=== PATIENT | male | born 1975 ===

== ENCOUNTER 2017-09-21 11:48 | Emergency (ER) | payer MEDICAID, OTHER ==
[2017-09-21] MEDS ORDERED: Albuterol-Ipratrop 3 mg / 0.5 (3 ml) UD INH STA (12:15)
[2017-09-21] MEDS ORDERED: Albuterol-Ipratrop 3 mg / 0.5 (3 ml) UD ONE (12:33)
--- NOTE | 2017-09-21 12:36 | RAD ---
HISTORY: cough COMPARISON: 09/14/2015 TECHNIQUE: Chest PA and lateral FINDINGS: LUNGS: No active pulmonary disease. PLEURA: No significant pleural effusion identified. No pneumothorax apparent. CARDIOVASCULAR: Normal. OSSEOUS STRUCTURES: No significant abnormalities. VISUALIZED UPPER ABDOMEN: Normal. OTHER FINDINGS: None. IMPRESSION: No active disease.
--- NOTE | 2017-09-21 12:55 | C.PDOC ---
History Of Present Illness 42 y/o male presents to the ED complaining of a cough for 3 days. Patient also complains of subjective dyspnea and reports that he has been using a leftover inhaler from a previous treatment for bronchitis, with some improvement. Last used inhaler just prior to arrival. No fever, chills, or other complaints. Time Seen by Provider: 09/21/17 12:07 Chief Complaint (Nursing): Shortness Of Breath History Per: Patient History/Exam Limitations: no limitations Onset/Duration Of Symptoms: Days (x3) Current Symptoms Are (Timing): Still Present Initiating Event: Upper Respiratory Illness Past Medical History Reviewed: Historical Data, Nursing Documentation, Vital Signs Vital Signs: Last Vital Signs Temp 98.1 F 09/21/17 14:06 Pulse 103 H 09/21/17 14:06 Resp 20 09/21/17 14:06 BP 129/86 09/21/17 14:06 Pulse Ox 98 09/21/17 14:52 - Medical History PMH: No Chronic Diseases Family History: States: Unknown Family Hx - Social History Hx Tobacco Use: No Hx Alcohol Use: No Hx Substance Use: No Review Of Systems Except As Marked, All Systems Reviewed And Found Negative. Constitutional: Negative for: Fever, Chills ENT: Negative for: Ear Pain, Throat Pain Cardiovascular: Negative for: Chest Pain Respiratory: Positive for: Cough, Shortness of Breath Gastrointestinal: Negative for: Vomiting Physical Exam - Physical Exam Appears: Non-toxic, No Acute Distress Skin: Normal Color, Warm, Dry Head: Atraumatic, Normacephalic Eye(s): bilateral: Normal Inspection, PERRL, EOMI Nose: Normal Oral Mucosa: Moist Neck: Normal ROM, Supple Chest: Symmetrical Cardiovascular: Rhythm Regular, No Murmur Respiratory: No Accessory Muscle Use, No Rales, Rhonchi (scattered), No Wheezing Extremity: Bilateral: Atraumatic, Normal Color And Temperature Neurological/Psych: Oriented x3, Normal Speech ED Course And Treatment O2 Sat by Pulse Oximetry: 98 (RA) Pulse Ox Interpretation: Normal Medical Decision Making Medical Decision Making: Impression: 42 y/o male with cough and subjective dyspnea, PERC negative Time: 12:15 Plan: * Duoneb 3 ml INH * Prednisone 50 mg PO * Peak flow pre/post treatment * Chest x-ray * Reevaluation after meds given pt reasseseed lungs clear. watching movie on phone airam. states shee feels "much better' asking for dc Disposition - Disposition Disposition: HOME/ ROUTINE Disposition Time: 14:45 Condition: STABLE Additional Instructions: please follow up with your doctor. return to er with worsening symptoms or concerns. Prescriptions: Albuterol 0.083% [Albuterol 0.083% Inhal Chandni (2.5 mg/3 ml) UD] 2.5 mg IH Q4 PRN #20 neb PRN Reason: Wheezing Prednisone 50 mg PO DAILY #5 tablet Instructions: Shortness of Breath (Dyspnea) (DC), Acute Bronchitis Forms: [employer] ([place]) - Clinical Impression Clinical Impression: Bronchitis - Scribe Statement The provider has reviewed the documentation as recorded by the Scribe (Rama Hester) Provider Attestation: All medical record entries made by the Scribe were at my direction and personally dictated by me. I have reviewed the chart and agree that the record accurately reflects my personal performance of the history, physical exam, medical decision making, and the department course for this patient. I have also personally directed, reviewed, and agree with the discharge instructions and disposition.
[2017-09-21 14:07] VITALS: BP 129/86; PULSE 103; RESP 20; TEMP 98.1
[2017-09-21 14:49] VITALS: O2SAT 98
== END 2017-09-21 15:00 | disposition home or self-care (01) ==
LOC: C.ER 11:48
DX: J40 Bronchitis, not specified as acute or chronic (principal)